=== PATIENT | female | born 1945 | race Caucasian/White ===

== ENCOUNTER 2016-11-09 22:09 | Emergency (ER) | payer MEDICARE, OTHER ==
[2016-11-09 23:10] LABS: CHLORIDE,CL 100 mmol/L (101-111); SODIUM,NA 140 mmol/L (135-145)
[2016-11-09] MEDS ORDERED: Diltiazem 25 MG/5 ML SDV IVPUSH ONE (23:45)
--- NOTE | 2016-11-09 23:53 | EDM.PDOC ---
ED HPI GENERAL MEDICAL PROBLEM - General Chief Complaint: Cardiovascular Problem Stated Complaint: NEEDS BP CHECKED [id number] Time Seen by Provider: 11/09/16 23:30 Source of Information: Reports: Patient History Limitations: Reports: No Limitations - History of Present Illness INITIAL COMMENTS - FREE TEXT/NARRATIVE: This 71 yo female patient reports to the ED with an elevated blood pressure and an irregular heartrate. The patient reports she was recently in the hospital for similar symptoms, was kept in the hospital for 3 days and was cardioverted. The patient has continued to take medications as directed. Onset: Today Duration: Minutes:, Constant, Getting Worse Location: Reports: Chest Quality: Reports: Dull Severity: Moderate Improves with: Reports: None Worsens with: Reports: None Associated Symptoms: Reports: No Other Symptoms - Related Data Allergies Allergy/AdvReac Type Severity Reaction Status Date / Time No Known Allergies Allergy Verified 11/09/16 23:48 Home Meds: Home Meds Albuterol [IJD: Ventolin HFA] 2 puff INH .TWICE DAILY PRN 11/09/16 [History] Lisinopril [Zestril] 5 mg PO BID 11/09/16 [History] Rivaroxaban [Xarelto] 20 mg PO DAILY 11/09/16 [History] Sotalol HCl [Sotalol] 80 mg PO BID 11/09/16 [History] amLODIPine [Norvasc] 5 mg PO DAILY PRN 11/09/16 [History] atorvaSTATin [Lipitor] 20 mg PO DAILY 11/09/16 [History] Past Medical History Cardiovascular History: Reports: Afib, Hypertension Respiratory History: Reports: Asthma Neurological History: Reports: CVA Other Neuro History: 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 ED EXAM, GENERAL - Physical Exam Exam: See Below Exam Limited By: No Limitations General Appearance: Alert, WD/WN, Moderate Distress Eye Exam: Bilateral Eye: EOMI, Normal Inspection, PERRL Ears: Normal External Exam, Normal Canal, Hearing Grossly Normal, Normal TMs Nose: Normal Inspection, Normal Mucosa, No Blood Throat/Mouth: Normal Inspection, Normal Lips, Normal Teeth, Normal Gums, Normal Oropharynx, Normal Voice, No Airway Compromise Head: Atraumatic, Normocephalic Neck: Normal Inspection, Supple, Non-Tender, Full Range of Motion Respiratory/Chest: No Respiratory Distress, Lungs Clear, Normal Breath Sounds, No Accessory Muscle Use, Chest Non-Tender Cardiovascular: No Edema, No JVD, No Murmur, No Rub, Tachycardia, Irregularly Irregular GI/Abdominal: Normal Bowel Sounds, Soft, Non-Tender, No Organomegaly, No Distention, No Abnormal Bruit, No Mass (Female) Exam: Deferred Rectal (Female) Exam: Deferred Back Exam: Normal Inspection, Full Range of Motion, NT Extremities: Normal Inspection, Normal Range of Motion, Non-Tender, Normal Capillary Refill, No Pedal Edema Neurological: Alert, Oriented, CN II-XII Intact, Normal Cognition, Normal Gait, Normal Reflexes, No Motor/Sensory Deficits Psychiatric: Normal Affect, Normal Mood Skin Exam: Warm, Dry, Intact, Normal Color, No Rash Lymphatic: No Adenopathy Course - Vital Signs Last Recorded V/S: Last Vital Signs Temp 36.6 C 11/09/16 22:18 Pulse 115 H 11/09/16 22:18 Resp 18 11/09/16 22:18 BP 198/110 H 11/09/16 22:18 Pulse Ox 96 11/09/16 22:18 - Orders/Labs/Meds Orders: Active Orders 24 hr Category Date Time Status EKG 12 Lead [EKG Documentation Completion] [RC] URGENT Care 11/10/16 00:27 Active EKG Documentation Completion [RC] URGENT Care 11/09/16 22:25 Active Labs: Laboratory Tests 11/09/16 11/09/16 11/09/16 Range/Units 22:38 22:38 22:38 WBC 8.5 (5.0-10.0) 10^3/uL RBC 4.55 (4.2-5.4) 10^6/uL Hgb 14.8 (12.0-16.0) g/dL Hct 44.1 (37.0-47.0) % MCV 96.9 (80-100) fL MCH 32.5 (27.0-34.0) pg MCHC 33.6 (33.0-35.0) g/dL Plt Count 272 (150-450) 10^3/uL Neut % (Auto) 74.4 (42.2-75.2) % Lymph % (Auto) 11.8 L (20.5-50.1) % Hendry % (Auto) 9.2 H (2-8) % Eos % (Auto) 3.7 H (1.0-3.0) % Baso % (Auto) 0.9 (0.0-1.0) % PT 12.5 H (9.0-12.0) SEC INR 1.2 (0.9-1.2) Sodium 140 (135-145) mmol/L Potassium 3.8 (3.6-5.0) mmol/L Chloride 100 L (101-111) mmol/L Carbon Dioxide 28.0 (21.0-31.0) mmol/L Anion Gap 15.8 BUN 18 (7-18) mg/dL Creatinine 0.8 (0.6-1.3) mg/dL Est Cr Clr Drug Dosing TNP Estimated GFR (MDRD) > 60 BUN/Creatinine Ratio 22.50 Glucose 124 H (74-105) mg/dL Calcium 9.8 (8.4-10.2) mg/dl Total Bilirubin 0.6 (0.2-1.0) mg/dL AST 23 (10-42) IU/L ALT 17 (10-60) IU/L Alkaline Phosphatase 73 (42-121) IU/L Troponin I < 0.02 (0.00-0.02) ng/ml Total Protein 7.8 (6.7-8.2) g/dl Albumin 4.1 (3.2-5.5) g/dl Globulin 3.7 Albumin/Globulin Ratio 1.11 Meds: Medications Discontinued Medications Generic Name Dose Route Start Last Admin Trade Name Freq PRN Reason Stop Dose Admin Diltiazem HCl 20 mg 11/09/16 23:45 11/09/16 23:54 Diltiazem IVPUSH 11/09/16 23:46 20 mg ONETIME ONE Administration - Re-Assessments/Exams Free Text/Narrative Re-Assessment/Exam: 11/10/16 00:56 After the patient was given a bolus of Cardizem, the patient's heart rate dropped to the 60's -70's and the patient was feeling well. Departure - Departure Time of Disposition: 00:52 Disposition: Home, Self-Care 01 Condition: Fair Clinical Impression: Atrial fibrillation with RVR Instructions: Atrial Fibrillation, [id number] Forms: ED Department Discharge Care Plan Goals: The patient and her were advised of the examination, lab, EKG and x-ray results during the visit. The patient was given Cardizem (20 mg) for rate control. With the patient's rate controlled in the 60's to 70's, the patient was discharged. 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 The patient should continue with her current medications as prescribed. If the patient has any additional symptoms or further concerns, the patient should either return to the emergency department or visit her primary care facility. - My Orders Last 24 Hours: My Active Orders 11/09/16 22:25 EKG Documentation Completion [RC] URGENT 11/10/16 00:27 EKG 12 Lead [EKG Documentation Completion] [RC] URGENT - Assessment/Plan Last 24 Hours: My Active Orders 11/09/16 22:25 EKG Documentation Completion [RC] URGENT 11/10/16 00:27 EKG 12 Lead [EKG Documentation Completion] [RC] URGENT
[2016-11-10 01:06] VITALS: BP 131/75
--- NOTE | 2016-11-11 13:56 | EKG ---
11/09/2016 - DOUG CARRILLO JUNE - TIME OF EK:29:47 A 12-lead EKG shows atrial fibrillation with rapid ventricular response. Heart rate of 110. No significant ST elevation or ST depression noted on this 12-lead EKG. [facility] /[id number]
--- NOTE | 2016-11-11 14:05 | EKG ---
11/10/2016 - DOUG CARRILLO JUNE - TIME OF EK:32:15 A 12-lead EKG shows atrial fibrillation with controlled ventricular response. Heart rate of 71. No significant ST elevation or ST depression noted on this 12- lead EKG. [facility] /[id number]
== END 2016-11-10 01:02 | disposition home or self-care (01) ==
LOC: DL.ED 22:09
DX: I48.91 Unspecified atrial fibrillation (principal); I10 Essential (primary) hypertension; J45.909 Unspecified asthma, uncomplicated; Z86.73 Personal history of transient ischemic attack (TIA), and cerebral infarction without residual deficits; F17.210 Nicotine dependence, cigarettes, uncomplicated; Z79.899 Other long term (current) drug therapy; Z98.890 Other specified postprocedural states
CPT/HCPCS: 36415; 71010; 80053; 84484; 85025; 85610; 93005; 93010; 96374; 99284; J3490